=== PATIENT | female | born 1945 | race Two or more races ===

== ENCOUNTER 2024-03-13 17:43 | Emergency (ER) | payer OTHER ==
[~2024-03-13] VITALS: Ht 160 cm; Wt 68.0 kg
[~2024-03-13 17:43] MED LIST: AVAPRO150 MG; TROPOL; [UNRECOGNIZED DRUG - OTHER]
[2024-03-13] MEDS ORDERED: TETANUS & DIPHTHERIA TOX,ADULT 0.5 ML VIAL IM STA (18:57)
[2024-03-13] MEDS ORDERED: CLINDAMYCIN PHOSPHATE 150 MG/ML (600mg) IM STA (18:57)
[2024-03-13] MEDS ORDERED: TETANUS DIPHTHERIA TOX. ADSOR 5 ML VIAL IM ONE (19:04)
[2024-03-13] MEDS ORDERED: CLINDAMYCIN PHOSPHATE 150 MG/ML (300mg) ONE (19:04)
== END 2024-03-13 19:12 | disposition home or self-care (01) ==
LOC: ER 17:46
DX: S61.451A Open bite of right hand, initial encounter (principal); W54.0XXA Bitten by dog, initial encounter; Y93.89 Activity, other specified; Y92.89 Other specified places as the place of occurrence of the external cause; Y99.8 Other external cause status; Z91.018 Allergy to other foods
CPT/HCPCS: 90471; 90714; 96372; 99282; J1670; J3490

== ENCOUNTER 2024-07-17 12:03 | Outpatient (CLI) | payer OTHER | END 2024-07-17 12:11 | disposition home or self-care (01) | LOC: RAD 12:03 | PROVIDERS: ATTEND Orthopaedic Surgery | DX: R07.9 Chest pain, unspecified (principal) ==

== ENCOUNTER 2024-12-01 16:23 | Inpatient (IN) | payer OTHER ==
[~2024-12-01] VITALS: Ht 160 cm; Wt 72.6 kg
[2024-12-01] MEDS ORDERED: SYNTHROID88 MCG PO (16:44)
[2024-12-01] MEDS ORDERED: METOPROLOL SUC100 MG PO (16:44)
[2024-12-01] MEDS ORDERED: VALSARTAN320 MG PO (16:44)
[2024-12-01] MEDS ORDERED: SERTRALINE HCL50 MG PO (16:45)
[2024-12-01] MEDS ORDERED: VITAMIN B122500 MCG PO (16:45)
[2024-12-01] MEDS ORDERED: FOLIC ACID1 MG PO (16:45)
[2024-12-01] MEDS ORDERED: DONEPEZIL HCL5 MG PO (16:45)
[2024-12-01] MEDS ORDERED: MEMANTINE HCL10 MG PO (16:45)
[2024-12-01] MEDS ORDERED: VITAMIN D3125 MCG PO (16:45)
[2024-12-01] MEDS ORDERED: SIMVASTATIN20 MG PO (16:45)
[2024-12-01] MEDS ORDERED: RISPERIDONE0.25 MG PO (16:45)
--- NOTE | 2024-12-01 16:49 | NUR ---
PTE REFERIDA POR DR. LORENA CHAVARRIA. FAMILIAR DE PTE REFIERE QUE PTE A PRESENTADO VOMITOS X2, MALESTAR GENERAL Y SE OBSERVA PIE DERECHO ENROJECIDO Y CALIENTE AL TACTO.
[2024-12-01] MEDS ORDERED: 0.9 % SODIUM CHLORIDE 1,000 ML IV STA (18:38)
[2024-12-01] MEDS ORDERED: ACETAMINOPHEN 325 MG TABLET PO ONE (18:45)
[2024-12-01] MEDS ORDERED: ENOXAPARIN SODIUM 40 MG/0.4 ML SYRINGE SUBCUTANEO ONE ×2 (18:45→18:49)
[2024-12-01] MEDS ORDERED: CLINDAMYCIN PHOSPHATE 150 MG/ML (600mg) IV ONE (18:45)
[2024-12-01] MEDS ORDERED: ACETAMINOPHEN 500 MG GEL..CAP PO ONE (18:48)
[2024-12-01] MEDS ORDERED: CLINDAMYCIN PHOSPHATE 150 MG/ML (300mg) ONE (18:48)
--- NOTE | 2024-12-01 18:58 | NUR ---
PTE ALERTA Y ORIENTADA X3. SE REALIZAN MUESTRAS DE LAB TAVARES ORDEN MEDICA Y BAJO MEDIDAS ASEPTICAS. SE REALIZA VENOPUNCION Y SE ADMINISTRA MEDICAMENTOS POR ARABELLA LANGFORD.
[2024-12-01 19:38] LABS: BASO % 0.2 % (0.1-1.2); EOS # 0.00 (0.04-0.54); EOS % 0.0 % (0.7-7.0); LYMPH # 0.91 (1.18-3.74); LYMPH % 3.8 % (19.3-53.1); MEAN PLATELET VOLUME 9.70 fl (9.4-12.4); MONO # 0.57 (0.24-0.82); MONO % 2.4 % (4.7-12.5); NEUT # 22.43 (1.56-6.13); NEUT % 92.9 % (34.0-71.1); RED CELL DISTRIBUTION WIDTH 13.5 % (11.6-14.4)
[2024-12-01 20:03] LABS: INR 1.07
[2024-12-01 20:07] LABS: URINE APPEARANCE Cloudy; URINE BILIRRUBIN Negative (NEGATIVE); URINE BLOOD Large; URINE COLOR Dark Yellow; URINE GLUCOSE Negative (NEGATIVE); URINE KETONE Trace (NEGATIVE); URINE LEUKOCYTE Large; URINE NITRATE Negative; URINE PROTEIN Trace (NEGATIVE); URINE UROBILINOGEN 1.0 E.U./dl
[2024-12-01 20:08] LABS: ALT/SGPT 41.0 U/L (12-78); AST/SGOT 24.0 U/L (15-37); BILIRUBIN TOTAL 0.8 mg/dL (0.3-1.2); BUN CREA RATIO 15.0 (7.0-25.0); CREATININE SERUM 1.3 mg/dL (0.55-1.02); GFR 39.61; GLOBULINA 4.2 G/DL (2.4-3.5); GLUCOSE FASTING 150.0 mg/dL (65-100); OSMOLALITY SERUM 274.0 MOSM/KG (275-295)
[2024-12-01 20:11] LABS: URINE BACTERIA 255.5 uL (0.0-1933); URINE EPITHELIAL CELLS 92.6 uL (0.0-38.8); URINE RBC 106.3 uL (0.0-20.8); URINE WBC 208.9 uL (0.0-23.2)
[2024-12-01 20:39] LABS: URINE CAST 0.00 uL (0.0-1.40)
[2024-12-01 20:41] LABS: TYPE CELLS SQUAMOUS; URINE MUCUS MODERATE
[2024-12-01 21:07] LABS: ERYTHROCYTE SEDIMENTATION RATE 83 mm/hr (0-30)
[2024-12-01] MEDS ORDERED: VANCOMYCIN HCL 1,000 MG VIAL IV SCH (21:34)
[2024-12-01] MEDS ORDERED: 0.9 % SODIUM CHLORIDE 1,000 ML IV SCH (21:45)
[2024-12-01] MEDS ORDERED: DONEPEZIL HCL 5 MG TABLET PO SCH (21:53)
[2024-12-01] MEDS ORDERED: SERTRALINE HCL 50 MG TABLET PO SCH (21:53)
[2024-12-01] MEDS ORDERED: MEMANTINE HCL 10 MG TABLET PO SCH (21:53)
[2024-12-01] MEDS ORDERED: RISPERIDONE 0.5 MG TABLET PO SCH (21:54)
[2024-12-01] MEDS ORDERED: ATORVASTATIN CALCIUM 20 MG TABLET PO SCH (21:54)
[2024-12-01] MEDS ORDERED: ENOXAPARIN SODIUM 40 MG/0.4 ML SYRINGE SUBCUTANEO SCH (21:57)
[2024-12-01] MEDS ORDERED: ONDANSETRON HCL 4 MG in 0.9 % SODIUM CHLORIDE 50 ML IV PRN (22:00)
[2024-12-02] MEDS ORDERED: VANCOMYCIN HCL 1,000 MG VIAL ONE ×2 (02:12→08:16)
[2024-12-02] MEDS ORDERED: ENOXAPARIN SODIUM 40 MG/0.4 ML SYRINGE SUBCUTANEO ONE (02:12)
[2024-12-02 07:34] VITALS: BP 112/62; O2SAT 95
[2024-12-02 07:37] LABS: ALT/SGPT 36.0 U/L (12-78); AST/SGOT 22.0 U/L (15-37); BILIRUBIN TOTAL 0.63 mg/dL (0.3-1.2); BUN CREA RATIO 19.0 (7.0-25.0); CREATININE SERUM 1.14 mg/dL (0.55-1.02); GFR 46.1; GLOBULINA 3.2 G/DL (2.4-3.5); GLUCOSE FASTING 125.0 mg/dL (65-100); OSMOLALITY SERUM 279.0 MOSM/KG (275-295)
[2024-12-02] MEDS ORDERED: ENOXAPARIN SODIUM 60 MG/0.6 ML SYRINGE SUBCUTANEO ONE (08:16)
[2024-12-02 15:36] VITALS: BP 142/70; O2SAT 95
[2024-12-02] MEDS ORDERED: MEROPENEM 500 MG/VIAL VIAL IV SCH (17:00)
[2024-12-02 19:23] VITALS: BP 139/65
[2024-12-02 21:17] VITALS: BP 136/63
[2024-12-03 02:27] VITALS: BP 116/71; O2SAT 93
[2024-12-03 07:06] LABS: BASO % 0.2 % (0.1-1.2); EOS # 0.14 (0.04-0.54); EOS % 1.2 % (0.7-7.0); LYMPH # 1.41 (1.18-3.74); LYMPH % 12.3 % (19.3-53.1); MEAN PLATELET VOLUME 10.20 fl (9.4-12.4); MONO # 0.59 (0.24-0.82); MONO % 5.1 % (4.7-12.5); NEUT # 9.24 (1.56-6.13); NEUT % 80.7 % (34.0-71.1); RED CELL DISTRIBUTION WIDTH 13.8 % (11.6-14.4)
[2024-12-03 07:31] LABS: ALT/SGPT 29.0 U/L (12-78); AST/SGOT 15.0 U/L (15-37); BILIRUBIN TOTAL 0.39 mg/dL (0.3-1.2); BUN CREA RATIO 12.0 (7.0-25.0); CREATININE SERUM 0.86 mg/dL (0.55-1.02); GFR 63.82; GLOBULINA 2.9 G/DL (2.4-3.5); GLUCOSE FASTING 90.0 mg/dL (65-100); OSMOLALITY SERUM 278.0 MOSM/KG (275-295)
[2024-12-03 09:25] VITALS: BP 133/70; O2SAT 95
[2024-12-03] MEDS ORDERED: POTASSIUM CHLORIDE IN WATER 40 MEQ/100 ML PIGGYBAG IV SCH (13:00)
[2024-12-03] MEDS ORDERED: AMINO ACIDS 1 EACH TABLET PO SCH (13:00)
[2024-12-03 17:04] VITALS: BP 130/68; O2SAT 98
[2024-12-04 02:44] VITALS: BP 150/76; O2SAT 97
[2024-12-04 08:44] VITALS: BP 162/65
[2024-12-04 20:26] VITALS: BP 157/75; O2SAT 96
[2024-12-05 01:52] VITALS: BP 138/67; O2SAT 97
[2024-12-05 08:16] LABS: URINE APPEARANCE Clear; URINE BILIRRUBIN Negative (NEGATIVE); URINE BLOOD Small; URINE COLOR Yellow; URINE GLUCOSE Negative (NEGATIVE); URINE KETONE Negative (NEGATIVE); URINE LEUKOCYTE Negative; URINE NITRATE Negative; URINE PROTEIN Negative (NEGATIVE); URINE UROBILINOGEN 0.2 E.U./dl
[2024-12-05 08:18] LABS: BASO % 0.2 % (0.1-1.2); EOS # 0.47 (0.04-0.54); EOS % 5.9 % (0.7-7.0); LYMPH # 1.80 (1.18-3.74); LYMPH % 22.4 % (19.3-53.1); MEAN PLATELET VOLUME 10.70 fl (9.4-12.4); MONO # 0.59 (0.24-0.82); MONO % 7.3 % (4.7-12.5); NEUT # 5.10 (1.56-6.13); NEUT % 63.6 % (34.0-71.1); RED CELL DISTRIBUTION WIDTH 13.7 % (11.6-14.4)
[2024-12-05 08:20] LABS: URINE EPITHELIAL CELLS 29.6 uL (0.0-38.8); URINE RBC 23.9 uL (0.0-20.8); URINE WBC 6.4 uL (0.0-23.2)
[2024-12-05 08:36] LABS: URINE BACTERIA 3.5 uL (0.0-1933); URINE CAST 0.00 uL (0.0-1.40)
[2024-12-05 08:36] LABS: ALT/SGPT 22.0 U/L (12-78); AST/SGOT 16.0 U/L (15-37); BILIRUBIN TOTAL 0.27 mg/dL (0.3-1.2); BUN CREA RATIO 16.0 (7.0-25.0); CREATININE SERUM 0.68 mg/dL (0.55-1.02); GFR 83.68; GLOBULINA 2.5 G/DL (2.4-3.5); GLUCOSE FASTING 72.0 mg/dL (65-100); OSMOLALITY SERUM 283.0 MOSM/KG (275-295)
[2024-12-05 09:21] VITALS: BP 143/72
[2024-12-05 18:01] VITALS: BP 143/73
[2024-12-06 00:50] VITALS: BP 166/72
[2024-12-06] MEDS ORDERED: METHYLPREDNISOLONE SOD SUCC 40 MG VIAL IV SCH (01:00)
[2024-12-06 09:24] VITALS: BP 145/77
[2024-12-06 12:25] LABS: ob NEGATIVE (NEGATIVE)
[2024-12-06 12:34] LABS: FECAL LEUKOCYTES NEGATIVE (NEGATIVE)
[2024-12-06 18:32] VITALS: BP 141/75
[2024-12-06] MEDS ORDERED: VANCOMYCIN HCL 1,000 MG VIAL IV SCH (21:00)
[2024-12-07 01:02] VITALS: BP 158/70; O2SAT 96
[2024-12-07 06:12] LABS: BASO % 0.2 % (0.1-1.2); EOS # 0.00 (0.04-0.54); EOS % 0.0 % (0.7-7.0); LYMPH # 1.08 (1.18-3.74); LYMPH % 8.2 % (19.3-53.1); MEAN PLATELET VOLUME 10.30 fl (9.4-12.4); MONO # 0.41 (0.24-0.82); MONO % 3.1 % (4.7-12.5); NEUT # 11.46 (1.56-6.13); NEUT % 87.3 % (34.0-71.1); RED CELL DISTRIBUTION WIDTH 13.2 % (11.6-14.4)
[2024-12-07 08:00] VITALS: BP 143/68; O2SAT 96
[2024-12-07] MEDS ORDERED: PATIENTS OWN MEDICATION (MEDICAMENTO EN PISO) PO SCH (09:00)
[2024-12-07] MEDS ORDERED: SODIUM CHLORIDE 0.45 % 1,000 ML IV SCH (11:00)
[2024-12-07 12:57] LABS: ALT/SGPT 44.0 U/L (12-78); AST/SGOT 30.0 U/L (15-37); BILIRUBIN TOTAL 0.32 mg/dL (0.3-1.2); BUN CREA RATIO 19.0 (7.0-25.0); CREATININE SERUM 0.72 mg/dL (0.55-1.02); GFR 78.34; GLOBULINA 3.2 G/DL (2.4-3.5); GLUCOSE FASTING 107.0 mg/dL (65-100); OSMOLALITY SERUM 280.0 MOSM/KG (275-295); PHOSPHOKINASE CREATININE 86.0 U/L (26-192)
[2024-12-07 20:04] VITALS: BP 115/68
[2024-12-08 02:16] VITALS: BP 168/68; O2SAT 96
[2024-12-08 08:43] VITALS: BP 165/55
[2024-12-08] MEDS ORDERED: METOPROLOL SUCCINATE 50 MG TAB.SR.24H PO SCH (17:00)
[2024-12-08] MEDS ORDERED: MEROPENEM 500 MG/VIAL VIAL IV SCH (18:00)
[2024-12-08 19:02] VITALS: BP 148/71; O2SAT 98
[2024-12-09 02:22] VITALS: BP 152/73; O2SAT 96
[2024-12-09 05:06] LABS: HEPATITIS B SURFACE ANTIBODY Non Reactive (.)
[2024-12-09] MEDS ORDERED: LEVOTHYROXINE SODIUM 88 MCG TABLET PO SCH (06:00)
[2024-12-09 09:16] VITALS: BP 163/67; O2SAT 98
[2024-12-09 12:27] LABS: BASO % 0.5 % (0.1-1.2); EOS # 0.58 (0.04-0.54); EOS % 6.1 % (0.7-7.0); LYMPH # 1.72 (1.18-3.74); LYMPH % 18.0 % (19.3-53.1); MEAN PLATELET VOLUME 9.50 fl (9.4-12.4); MONO # 0.70 (0.24-0.82); MONO % 7.3 % (4.7-12.5); NEUT # 6.34 (1.56-6.13); NEUT % 66.6 % (34.0-71.1); RED CELL DISTRIBUTION WIDTH 13.6 % (11.6-14.4)
[2024-12-09 12:51] LABS: INR 1.03
[2024-12-09 13:07] LABS: ANTI CARDIO IGM 14 MPL U/mL (0-12); ANTI JO 1 < 0.2 AI (0.0-0.9); ANTI-CENTROMERE AB <0.2 AI (0.0-0.9); DNA AB DOUBLE STRABDED < 1 IU/mL (0-9)
[2024-12-09 13:21] LABS: ALT/SGPT 75.0 U/L (12-78); AST/SGOT 42.0 U/L (15-37); BILIRUBIN TOTAL 0.33 mg/dL (0.3-1.2); BUN CREA RATIO 21.0 (7.0-25.0); CREATININE SERUM 0.7 mg/dL (0.55-1.02); GFR 80.93; GLOBULINA 2.7 G/DL (2.4-3.5); GLUCOSE FASTING 91.0 mg/dL (65-100); OSMOLALITY SERUM 278.0 MOSM/KG (275-295)
[2024-12-09 18:56] VITALS: BP 149/65
[2024-12-10 00:24] VITALS: BP 166/78
[2024-12-10 08:52] VITALS: BP 175/71; O2SAT 98
[2024-12-10 09:07] LABS: CYCLIC CITRULLINE PEPTIDE < 2 units (0-19)
[2024-12-10] MEDS ORDERED: DONEPEZIL HCL5 MG PO (10:50)
[2024-12-10] MEDS ORDERED: SIMVASTATIN20 MG PO (10:51)
[2024-12-10] MEDS ORDERED: MEMANTINE HCL10 MG PO (10:52)
[2024-12-10] MEDS ORDERED: VALSARTAN320 MG PO (10:52)
[2024-12-10] MEDS ORDERED: METOPROLOL SUC100 MG PO (10:52)
[2024-12-10] MEDS ORDERED: RISPERIDONE0.25 MG PO (10:53)
[2024-12-10] MEDS ORDERED: SERTRALINE HCL50 MG PO (10:53)
[2024-12-10] MEDS ORDERED: PRE PROTEIN1 EACH PO (10:53)
[2024-12-10] MEDS ORDERED: SYNTHROID88 MCG PO (10:53)
[2024-12-10] MEDS ORDERED: FOLIC ACID1 MG PO (10:54)
[2024-12-10] MEDS ORDERED: VITAMIN D3125 MCG PO (10:54)
[2024-12-10] MEDS ORDERED: VITAMIN B122500 MCG PO (10:54)
[2024-12-10] MEDS ORDERED: MONDOXYNE NL100 MG PO (10:55)
[2024-12-10 19:11] LABS: anti MPO AB < 0.2 units (0.0-0.9); anti pr3 < 0.2 units (0.0-0.9)
[2024-12-11 15:11] LABS: ANTI MITOCHONDRIAL ANTIBODIES < 20.0 Units (0.0-20.0); SMOOTH MUSCLE ANTIBODY 5 Units (0-19)
== END 2024-12-10 14:08 | disposition home or self-care (01) | DRG 602 ==
LOC: ER 16:23 → SEC-K 21:39 → MEDI 12-02 18:16
PROVIDERS: General Practice; Internal Medicine; Internal Medicine Infectious Disease; ADMIT Internal Medicine; ATTEND Internal Medicine
PROC: B54DZZZ Ultrasonography of Bilateral Lower Extremity Veins (ICD-10-PCS; principal; 2024-12-01)
PROC: BQ40ZZZ Ultrasonography of Right Hip (ICD-10-PCS; 2024-12-06)
DX: L03.115 Cellulitis of right lower limb (principal); A41.9 Sepsis, unspecified organism; N17.9 Acute kidney failure, unspecified; D72.829 Elevated white blood cell count, unspecified; I10 Essential (primary) hypertension; G30.9 Alzheimer's disease, unspecified; F02.80 Dementia in other diseases classified elsewhere, unspecified severity, without behavioral disturbance, psychotic disturbance, mood disturbance, and anxiety; E03.9 Hypothyroidism, unspecified; L53.9 Erythematous condition, unspecified; D64.9 Anemia, unspecified